=== PATIENT | female | born 1960 ===

== ENCOUNTER 2021-01-19 12:34 | Emergency (ER) | payer OTHER ==
[~2021-01-19] VITALS: Ht 160 cm; Wt 112.9 kg
[~2021-01-19 12:34] MED LIST: ADVAIR 2501 DISK W/1 IH; ALBUTEROL17 GM IH; CLARITIN-D1 TAB.SR . PO; PREDNISOLO15 MG/5 ML PO; SINGULAIR10 MG PO; SYNTHROID100 MCG PO; ZITHROMAX500 MG PO; [UNRECOGNIZED DRUG - OTHER] PO
[2021-01-19] MEDS ORDERED: CLARITIN-D 121 EACH PO (12:43)
[2021-01-19] MEDS ORDERED: SIMVASTATIN20 MG PO (12:45)
[2021-01-19] MEDS ORDERED: FORTAMET500 MG PO (12:46)
[2021-01-19] MEDS ORDERED: IBUPROFEN400 MG (12:46)
[2021-01-19] MEDS ORDERED: CENTRUM ADULT120 MCG PO (12:47)
[2021-01-19] MEDS ORDERED: CHILDREN'S ASPI81 MG PO (12:47)
[2021-01-19] MEDS ORDERED: HYDROCHLOROTHIA25 MG PO (12:48)
== END 2021-01-19 14:59 | disposition home or self-care (01) ==
LOC: ER 12:34
DX: R53.81 Other malaise (principal); Z11.52 Encounter for screening for COVID-19

== ENCOUNTER 2021-08-13 12:00 | Emergency (ER) | payer OTHER ==
[~2021-08-13] VITALS: Ht 157.5 cm; Wt 111.1 kg
[~2021-08-13 12:00] MED LIST changes: +CENTRUM ADULT120 MCG PO; +CHILDREN'S ASPI81 MG PO; +CLARITIN-D 121 EACH PO; +FORTAMET500 MG PO; +HYDROCHLOROTHIA25 MG PO; +IBUPROFEN400 MG; +SIMVASTATIN20 MG PO
[2021-08-13] MEDS ORDERED: ZITHROMAX500 MG PO (15:11)
== END 2021-08-13 16:28 | disposition home or self-care (01) ==
LOC: ER 12:00
DX: J06.9 Acute upper respiratory infection, unspecified (principal); Z03.818 Encounter for observation for suspected exposure to other biological agents ruled out